=== PATIENT | female | born 1955 | race Hispanic/Latino ===

== ENCOUNTER 2019-01-01 20:52 | Emergency (ER) | payer OTHER ==
[~2019-01-01 20:52] MED LIST: FOLI1TAB15 PO; MELO-106 PO; RANI300T4 PO; TRAM50TA4 PO
[2019-01-01 21:16] LABS: BASOPHILS % (AUTO) 0.7 % (0.0-5.0); EOSINOPHILS % (AUTO) 2.3 % (0.0-8.0); HEMATOCRIT 35.3 % (36-48); LYMPHOCYTES % (AUTO) 30.9 % (21.0-51.0); MEAN CORPUSCULAR HGB CONC 32.8 g/dL (32.0-36.0); MEAN CORPUSCULAR VOLUME 91.5 fL (79-99); MONOCYTES % (AUTO) 6.5 % (3.0-13.0); NEUTROPHILS % (AUTO) 59.6 % (40.0-77.0); PLATELET COUNT (AUTO) 243 K/uL (130-400); RED BLOOD CELL COUNT(AUTO) 3.85 MIL/uL (4.00-5.50); RED CELL DISTRIBUTION WIDTH 14.3 % (11.0-15.5); WHITE BLOOD COUNT (AUTO) 5.6 K/uL (4.8-10.8)
[2019-01-01 21:27] LABS: CREATININE 0.7 mg/dL (0.5-1.5); POTASSIUM 3.5 mmol/L (3.5-5.1)
[2019-01-01 21:30] LABS: INR 0.92 (0.85-1.15); PARTIAL THROMBOPLASTIN TIME 27.5 SEC (26.3-35.5); PROTHROMBIN TIME 9.7 SEC (9.6-11.6)
[2019-01-01 21:32] LABS: ALBUMIN 3.2 g/dL (3.5-5.0); BILIRUBIN,TOTAL 0.1 mg/dL (0.2-1.0); TOTAL PROTEIN, SERUM 7.2 g/dL (6.0-8.3)
[2019-01-01] MEDS ORDERED: ASPIRIN 81MG TAB.CHEW ONE (21:48)
[2019-01-01] MEDS ORDERED: NITROGLYCERIN 1GM/1 INCH PACKET TD ONE (21:49)
== END 2019-01-01 23:41 | disposition home or self-care (01) ==
LOC: EDH 20:52
DX: R07.89 Other chest pain (principal); W18.39XA Other fall on same level, initial encounter; Y93.89 Activity, other specified; Y92.89 Other specified places as the place of occurrence of the external cause; Y99.8 Other external cause status
CPT/HCPCS: 36415; 71045; 71100; 80053; 82150; 82550; 83690; 84484; 85025; 85610; 85730; 93005

== ENCOUNTER → 2020-08-05 | Outpatient (CLI) | payer OTHER | END | disposition home or self-care (01) | LOC: RAH 16:00 | PROVIDERS: ATTEND Internal Medicine Cardiovascular Disease | DX: Z13.6 Encounter for screening for cardiovascular disorders (principal) | CPT/HCPCS: 75571 ==

== ENCOUNTER 2021-09-27 14:47 | Emergency (ER) | payer OTHER ==
[~2021-09-27] VITALS: Ht 165.1 cm; Wt 101.2 kg
[2021-09-27] MEDS ORDERED: DICYCLOMINE HCL 10 MG/5 ML ML PO ONE (15:17)
[2021-09-27] MEDS ORDERED: LIDOCAINE HCL 2% VISCOUS 15 ML UDCUP PO ONE (15:30)
[2021-09-27] MEDS ORDERED: MAG/ALUM/SIMETH 30 ML UDCUP PO ONE (15:30)
[2021-09-27] MEDS ORDERED: D-ME118S47 PO (16:28)
[2021-09-27] MEDS ORDERED: PANT40TA54 PO (16:28)
[2021-09-27 16:30] VITALS: BP 140/76
== END 2021-09-27 16:56 | disposition home or self-care (01) ==
LOC: EDH 14:47
DX: K21.9 Gastro-esophageal reflux disease without esophagitis (principal); R05.3 Chronic cough; I10 Essential (primary) hypertension; Z79.1 Long term (current) use of non-steroidal anti-inflammatories (NSAID); Z86.16 Personal history of COVID-19
CPT/HCPCS: 71046